=== PATIENT | female | born 1985 | race Caucasian/White ===

== ENCOUNTER 2017-09-12 11:38 | Emergency (ER) | payer OTHER ==
[~2017-09-12] VITALS: Ht 162.6 cm; Wt 57.2 kg
[~2017-09-12 11:38] MED LIST: IBUPROFEN800 MG PO; PRENATAL1 TA2 PO
[2017-09-12 12:45] LABS: ABSOLUTE BASOPHIL COUNT 0 /CUMM (0.0-0.2); ABSOLUTE EOSINOPHIL COUNT 0 /CUMM (0.0-0.7); ABSOLUTE GRANULOCYTE CT 6.5 /CUMM (1.4-6.5); ABSOLUTE LYMPH COUNT 1.5 /CUMM (1.2-3.4); ABSOLUTE MONOCYTE COUNT 0.7 /CUMM (0.10-0.60); BASOPHIL % 0.2 % (0.0-2.0); EOSINOPHIL % 0.5 % (0-5); HEMATOCRIT 37.9 % (37-47); MEAN CORPUSCULAR HGB 26.6 PG (27.0-31.0); MEAN CORPUSCULAR HGB CONC 33.5 G/DL (33.0-37.0); MEAN CORPUSCULAR VOLUME 79.3 FL (81.0-99.0); MEAN PLATELET VOLUME 7.8 FL (7.4-10.4); PLATELET COUNT 260 /CUMM (130-400); RBC DISTRIBUTION WIDTH 14.2 % (11.5-14.5); RED BLOOD CELL CT 4.78 /CUMM (4.20-5.40); WHITE BLOOD CELL COUNT 8.7 /CUMM (4.8-10.8)
--- NOTE | 2017-09-12 14:30 | ULTRASOUND REPORT ---
EXAMINATION: TRANSVAGINAL AND TRANSABDOMINAL ULTRASOUND OF THE PELVIS CLINICAL INFORMATION: Vaginal bleeding. 8 weeks . Last menstrual period 07/20/2017 and corresponding to a gestational age of 6 weeks 4 days. COMPARISON: None. TECHNIQUE: Real-time scanning of the pelvis is acquired via transabdominal and transvaginal approach. Transvaginal images were obtained for more detailed evaluation of the ovaries and endometrial. FINDINGS: UTERUS: Anteverted. Normal in size and appearance, measuring 9.6 x 4.4 x 5.6 cm (SAG x AP x TRANS). No gestational sac is identified. Cervix measures 3.1 cm in length. Maximum Endometrial Thickness: 1.2 cm. Myometrium: Normal. OVARIES AND ADNEXA: Ovaries are normal in size and appearance. No adnexal mass. Arterial and venous waveforms are present in both ovaries on spectral Doppler evaluation. Right Ovary: 3.6 x 2.2 x 2.4 cm, volume 9.7 mL. Left Ovary: 2.8 x 1.8 x 1.8 cm, volume 4.8 mL. FREE FLUID: None. IMPRESSION: Normal pelvic ultrasound. No intrauterine gestational sac is identified. These findings may represent a too early to detect or missed spontaneous . Ectopic is unlikely in the absence of free fluid, though not completely excluded.
[2017-09-12 15:30] VITALS: BP 132/78
--- NOTE | 2017-09-12 15:59 | ED GI/GU/ABDOMINAL COMPLAINT ---
History of Present Illness General Chief Complaint: General Adult Stated Complaint: ? 8 WEEKS PREG/BLEEDING Source: patient Exam Limitations: no limitations Vital Signs & Intake/Output Vital Signs & Intake/Output Vital Signs Date Time Temp Pulse Resp B/P B/P Pulse O2 O2 Flow FiO2 Mean Ox Delivery Rate 09/12 1602 Room Air 09/12 1530 98.6 88 14 132/78 99 Room Air 09/12 1214 98.5 94 18 143/94 98 Room Air ED Intake and Output 09/13 0000 09/12 1200 Intake Total Output Total Balance Patient 126 lb Weight Weight Estimated Measurement Method Allergies Coded Allergies: clindamycin (Severe, RASH 11/29/15) Reconcile Medications Ibuprofen 800 MG TABLET 800 MG PO Q6P PRN PAIN SCALE 4-6 PNV95/FERROUS FUMARATE/FA ( Formula Tablet) 28 MG IRON-800 MCG TABLET 1 TAB PO DAILY (Reported) Triage Note: RECEIVED 32 YO FEMALE , 8 WEEKS , LMP 07/28/17. PT REPORTS HEAVY VAGINAL BLEEDING X ONE HOUR, NO CLOTS WITH MODERATE CRAMPING ABDOMINAL PAIN. NO N/V/D. Triage Nurses Notes Reviewed? yes ? Y Is pt currently ? No Onset: Abrupt Duration: hour(s): Timing: single episode today Quality/Severity: cramping HPI: 32-year-old female with her last menstrual period at the end of July comes into the emergency room with vaginal bleeding for the past hour. She reports that she had a blood test done by her AUTOMOTIVE SALES REPRESENTATIVE doctor last week which was positive for . She is a . Some mild abdominal cramping. Denies any fever chills vomiting. Denies any other associated symptoms. (Jason Alexander) Past History Travel History Traveled to [place] past 21 day No Medical History Any Pertinent Medical History? see below for history Neurological: NONE EENT: NONE Cardiovascular: NONE Respiratory: NONE Gastrointestinal: NONE Hepatic: NONE Renal: NONE Musculoskeletal: NONE Psychiatric: NONE Endocrine: NONE Blood Disorders: NONE Cancer(s): NONE Surgical History Surgical History: N Psychosocial History Tobacco Use: Never used Family History Hx Contributory? No (Jason Alexander) Review of Systems Review of Systems Constitutional: Reports: no symptoms. EENTM: Reports: no symptoms. Respiratory: Reports: no symptoms. Cardiovascular: Reports: no symptoms. GI: Reports: see HPI. Genitourinary: Reports: see HPI. Musculoskeletal: Reports: no symptoms. Skin: Reports: no symptoms. Neurological/Psychological: Reports: no symptoms. Hematologic/Endocrine: Reports: no symptoms. Immunologic/Allergic: Reports: no symptoms. All Other Systems: Reviewed and Negative (Jason Alexander) Physical Exam Physical Exam General Appearance: well developed/nourished, no apparent distress, alert, awake Head: atraumatic, normal appearance Eyes: Bilateral: normal appearance, EOMI. Ears, Nose, Throat, Mouth: hearing grossly normal, moist mucous membrane Neck: normal inspection Respiratory: normal breath sounds, no respiratory distress Gastrointestinal: soft, non-tender Back: normal inspection Extremities: normal range of motion Neurologic/Psych: awake, alert, oriented x 3 Skin: intact, normal color Core Measures ACS in differential dx? No Sepsis Present: No Sepsis Focused Exam Completed? No (Jason Alexander) Progress Differential Diagnosis: sPONTANEOUS , THREATENED , ECTOPIC , OVARIAN CYST, Plan of Care: Orders Procedure Date/time Status Add-on Test (ER Only) 09/12 1337 Active HUMAN BETA HCG TITRE 09/12 1230 Complete TYPE & SCREEN (NOT X-MATCH) 09/12 1230 Complete URINALYSIS 09/12 1216 Complete COMPREHENSIVE METABOLIC PANEL 09/12 1216 Complete CBC WITHOUT DIFFERENTIAL 09/12 1216 Complete Laboratory Tests 09/12/17 1230: Anion Gap 13, Estimated GFR > 60, BUN/Creatinine Ratio 16.7, Glucose 88, Calcium 9.3, Total Bilirubin 0.4, AST 19, ALT 22, Alkaline Phosphatase 53, Total Protein 7.7, Albumin 4.4, Globulin 3.3, Albumin/Globulin Ratio 1.3, Beta HCG, Quant 14.3 , CBC w Diff NO MAN DIFF REQ, RBC 4.78, MCV 79.3 L, MCH 26.6 L, MCHC 33.5, RDW 14.2, MPV 7.8, Gran % 74.0, Lymphocytes % 17.4 L, Monocytes % 7.9, Eosinophils % 0.5, Basophils % 0.2, Absolute Granulocytes 6.5, Absolute Lymphocytes 1.5, Absolute Monocytes 0.7 H, Absolute Eosinophils 0, Absolute Basophils 0 09/12/17 1227: Urine Color YEL, Urine Clarity HAZY H, Urine pH 7.0, Ur Specific [place] 1.020, Urine Protein NEG, Urine Ketones NEG, Urine Nitrite NEG, Urine Bilirubin NEG, Urine Urobilinogen 0.2, Ur Leukocyte Esterase TRACE H, Ur Microscopic SEDIMENT EXAMINED, Urine RBC 50-75 H, Urine WBC 1-3 H, Ur Epithelial Cells FEW, Urine Bacteria FEW H, Urine Hemoglobin LARGE H, Urine Glucose NEG Diagnostic Imaging: Viewed by Me: Ultrasound. Discussed w/RAD: Ultrasound. Radiology Impression: PATIENT: CHIQUITA NAQVI PRESENT AGE: 32 PATIENT ACCOUNT NO: [id number] : 87 LOCATION: [facility] ORDERING PHYSICIAN: Jason KOO SERVICE DATE: 09/12/17 EXAM TYPE: US - US TRANSVAG EXAMINATION: TRANSVAGINAL AND TRANSABDOMINAL ULTRASOUND OF THE PELVIS CLINICAL INFORMATION: Vaginal bleeding. 8 weeks . Last menstrual period 07/20/2017 and corresponding to a gestational age of 6 weeks 4 days. COMPARISON: None. TECHNIQUE: Real-time scanning of the pelvis is acquired via transabdominal and transvaginal approach. Transvaginal images were obtained for more detailed evaluation of the ovaries and endometrial. FINDINGS: UTERUS: Anteverted. Normal in size and appearance, measuring 9.6 x 4.4 x 5.6 cm (SAG x AP x TRANS). No gestational sac is identified. Cervix measures 3.1 cm in length. Maximum Endometrial Thickness: 1.2 cm. Myometrium: Normal. OVARIES AND ADNEXA: Ovaries are normal in size and appearance. No adnexal mass. Arterial and venous waveforms are present in both ovaries on spectral Doppler evaluation. Right Ovary: 3.6 x 2.2 x 2.4 cm, volume 9.7 mL. Left Ovary: 2.8 x 1.8 x 1.8 cm, volume 4.8 mL. FREE FLUID: None. IMPRESSION: Normal pelvic ultrasound. No intrauterine gestational sac is identified. These findings may represent a too early to detect or missed spontaneous . Ectopic is unlikely in the absence of free fluid, though not completely excluded. DICTATED BY: Arcadio Banks MD DATE/TIME DICTATED:09/12/171422 ENVIRONMENTAL SERVICES MANAGER:DAJA DATE/TIME TRANSCRIBED:09/12/171422 CONFIDENTIAL, DO NOT COPY WITHOUT APPROPRIATE AUTHORIZATION. <Electronically signed in Other Vendor System> SIGNED BY: Arcadio Banks MD 09/12/17 1430 Initial ED EKG: none Comments: 09/12/2017 7:32:14 PM Patient clinically looks well. Patient is in no apparent distress. Patient is nontoxic-appearing. Rh+. Quant level very low. Patient had a positive test last week. No IUP seen. Patient was told that she needs follow- up with her AUTOMOTIVE SALES REPRESENTATIVE doctor for repeat beta hCG titer in 2 days. Return if any other concerns. Likely spontaneous miscarriage. This was explained to the patient. explained The possibility of very early which is important why she needs a repeat beta hCG titer in 2 days. (Jason Alexander) Departure Departure Disposition: HOME OR SELF CARE Condition: Stable Clinical Impression Primary Impression: Spontaneous Referrals: Woodrow ALATORRE,Alejandra Bro (PCP/Family) Additional Instructions: Follow-up for repeat beta hCG titer in 2 days. Follow-up with your AUTOMOTIVE SALES REPRESENTATIVE doctor. Return if any other concerns worsening symptoms. Please go over all results of today's visit with your primary care doctor. Contact your primary care doctor to let them know you were here in the emergency room. There may be nonspecific findings which may not be related to your visit today here in the emergency room but may require further evaluation and chronic monitoring by your primary care doctor. If you had a laceration today the chance of foreign body always remains. You should follow-up with your primary care doctor for recheck in 3-5 days for a wound check. If you had an x-ray done there is a chance that a fracture could have been missed on initial read and you should follow-up with your primary care doctor for repeat x-rays if symptoms persist. If your blood pressure was elevated here in the emergency room please have rechecked by [facility] primary care doctor within the next 48. If you were prescribed a narcotic here in the emergency room or any type of controlled substances you're not allowed to drive while taking this medication or operate any type of heavy machinery. Narcotics can make you feel lightheaded dizziness nausea and can cause constipation. You may need to picking tech a stool softener. Thank you for choosing [facility] emergency room. Please return to the emergency room immediately if you have any other concerns worsening of symptoms. Departure Forms: Customer Survey General Discharge Information (Jason Alexander) PA/TOWER EQUIPMENT INSTALLER Co-Sign Statement Statement: ED Attending supervision documentation- [] I saw and evaluated the patient. I have also reviewed all the pertinent lab results and diagnostic results. I agree with the findings and the plan of care as documented in the PA's/TOWER EQUIPMENT INSTALLER's documentation. [X] I have reviewed the ED Record and agree with the PA's/TOWER EQUIPMENT INSTALLER's documentation. [] Additions or exceptions (if any) to the PAs/TOWER EQUIPMENT INSTALLER's note and plan are summarized below: [] (Francisco ALATORRE,Humberto Martinez)
== END 2017-09-12 16:09 ==
LOC: ERH 11:38
PROVIDERS: Physician Assistant Medical
DX: O03.9 Complete or unspecified spontaneous abortion without complication (principal); R10.9 Unspecified abdominal pain
CPT/HCPCS: 76817; 81001